=== PATIENT | female | born 1965 | race Caucasian/White ===

== ENCOUNTER 2024-04-10 07:49 | Emergency (ER) | payer BC, SELFPAY ==
[2024-04-10 07:59] VITALS: BP 218/113
--- NOTE | 2024-04-10 09:01 | ED.GENMED ---
History of Present Illness
General
Chief Complaint: Headache
Source: patient
Exam Limitations: none
Time Seen by Provider: 04/10/24 08:31
Travel History
Have you had any contact with someone who has COVID-19?: No
Do you have any symptoms of coronavirus? Fever > 100 degrees, chills, cough, shortness of breath, sore throat, loss of taste or smell, muscle aches, or headache?: No
History of Present Illness
History of Present Illness:
66-year-old female with history of hypertension presents complaining of worsening headache to the left side of her head. About 5 days ago, she developed an aura of which she saw floaters and developed pain to the left side of the head. Since then
she has had tenderness to the touch over the left alevism region and more recently numbness to the left side of her face. She denies loss of vision. She feels as though her vision is off slightly. She denies double vision. No rash. No fever. No
known tick bites. She has a history of shingles and this feels somewhat similar but she has since had her shingles vaccine. No other complaints at this time
Past History
Past History
ED Past Medical History: HTN and Hypercholesterolemia
ED Past Surgical History: None
Social History
Tobacco: Non-smoker
Alcohol: None
Phy Exam
Physical Exam
Physical Exam:
General: Well appearing female shielding her eyes from the light no acute respiratory distress
HEENT: Normocephalic pupils equal round reactive to light TMs normal extract motions are intact no proptosis
Heart: Regular rate and rhythm no murmurs lungs: Clear no wheeze
Skin: No rash or lesion
Neurologic: Alert and oriented x 3 mildly positive Tinel's over the temporal artery on the left
Musculoskeletal exam: Cervical spine nontender
Extremities: No cyanosis
Course
Orders/Labs/Results
Orders:
Orders
04/10/24 09:00
CT Head W/o Iv Contrast Urgent
Comment:
Reason For Exam: headache
04/10/24 09:38
CRP [C-Reactive Protein] Urgent
Complete Blood Count/With Diff Urgent
Comprehensive Metabolic Panel Urgent
Sed Rate [Erythrocyte Sed Rate] Urgent
Abnormal Lab Results
04/10/24
09:38
Glucose 116 H mg/dl
(70-99)
Calcium 10.9 H mg/dl
(8.4-10.2)
04/10/24 09:38
04/10/24 09:38
Vital Signs
Initial and Last Documented VS:
Initial Vital Signs
Temp Pulse Resp BP Pulse Ox
98.5 F 103 18 218/113 98
04/10/24 07:59 04/10/24 07:59 04/10/24 07:59 04/10/24 07:59 04/10/24 07:59
Last Documented Vital Signs
Temp Pulse Resp BP Pulse Ox
98.5 F 96 20 176/87 98
04/10/24 07:59 04/10/24 10:42 04/10/24 10:42 04/10/24 10:42 04/10/24 10:42
MDM/Problems Addressed
Differential Diagnosis Includes:
Left-sided headache. Consider atypical migraine versus temporal arteritis versus early onset shingles. Patient is hypertensive at triage. Will consider CT of head. Patient will take her blood pressure medicine in the room. Labs pending
including sed rate and CRP. Patient declined any symptomatic treatment until tests are performed.
*Critical Care Note
Total Time (30-74mins, 75-104mins- exclusive of procedures): Not Applicable
Update Note
Update Note:
CT normal. Labs reviewed with normal inflammatory markers. Temporal arteritis unlikely. No intracranial hemorrhage noted on CT. Suspect possible atypical migraine versus early shingles without rash. Offered treatment here however she declined.
She will call home and continue to manage symptoms at home advise follow-up with family doctor
ED Attending Note
-
Portions of this chart may have been created with voice recognition software.� Occasional wrong word or��sound alike� substitutions may have occurred due to the inherent limitations of voice recognition software.
Discharge Plan
Departure
Patient Disposition: Home (Routine Discharge)
Date of Disposition: 04/10/24
Time of Disposition: 12:23
Patient with high blood pressure during this ER visit?: No
Discharge Problem:
Headache
Instructions: Migraines (DC)
Prescriptions:
No Action
fenofibrate nanocrystallized 48 MG tablet
48 mg PO DAILY
Referrals:
Chevy Garsia MD [Family Provider] -
Activity Restrictions/Additional Instructions:
Please continue treatment at home for headache. Please return here for worsening symptoms. Continue to watch for a rash in the left side of your face. Follow-up with family doctor otherwise
Interventions
Interventions:
*Risk Screen - Suicide Last Done: 04/10/24 07:59
*General Assessment Last Done: 04/10/24 10:36
*Neglect/Abuse Screening Last Done: 04/10/24 07:59
*ED COVID-19 Vaccine History Last Done: 04/10/24 07:59
ED- Neurological Assessment Last Done: 04/10/24 10:39
Discharge Date and Time
Print Language: SLOVAK
[2024-04-10 09:59] LABS: ALT (SGPT) 28 U/L (0-35); AST (SGOT) 24 U/L (14-36); Albumin 4.6 g/dl (3.5-5.0); Alkaline Phosphatase 108 U/L (38-126); Blood Urea Nitrogen 16 mg/dl (7-17); Calcium 10.9 mg/dl (8.4-10.2); Carbon Dioxide 28 mmol/L (22-30); Chloride 105 mmol/L (98-107); Glucose 116 mg/dl (70-99); Sodium 141 mmol/L (135-145); Total Bilirubin 0.6 mg/dl (0.2-1.3); Total Protein 7.2 g/dl (6.3-8.2); eGFR > 60.00
[2024-04-10 10:00] LABS: % Eosinophils 0.8 % (0-6); % Immature Granulocytes 0.5 % (0-0.5); % Lymphocytes 28.1 % (20.5-51.1); % Monocytes 4.9 % (1.7-9.3); % Neutrophils 64.7 % (42.2-75.2); Absolute Basophils 0.1 10^3/uL (0-0.2); Absolute Eosinophils 0.1 10^3/uL (0-0.7); Absolute Lymphocytes 1.7 10^3/uL (1.2-3.4); Absolute Monocytes 0.3 10^3/uL (0.1-0.6); C-Reactive Protein < 5.00 mg/L (0.0-10.00); Hematocrit 43.5 % (37.0-47.0); Hemoglobin 14.9 g/dL (12.0-16.0); Mean Corp Hgb Conc. 34.3 g/dL (33.0-37.0); Mean Corpuscular Hgb 28.6 pg (27.0-31.0); Mean Corpuscular Volume 83.5 fL (81.0-99.0); Mean Platelet Volume 10.4 fL (7.4-10.4); Nucleated Red Blood Cells % 0 %; Platelet Count 235 10^3/uL (130-400); Red Blood Cell Count 5.21 10^6/uL (4.20-5.40); Red Cell Dist. Width 12.8 % (11.5-14.5); White Blood Cell Count 6.1 10^3/uL (4.8-10.8)
[2024-04-10 10:36] VITALS: BMI 40.2
[2024-04-10 10:42] VITALS: BP 176/87
[2024-04-10 11:00] VITALS: BP 176/94
[2024-04-10 11:27] LABS: Erythrocyte Sed Rate 13 mm/hour (0-20)
[2024-04-10 12:00] VITALS: BP 166/84
== END 2024-04-10 12:30 | disposition home or self-care (01) ==
LOC: EMR 07:49
PROVIDERS: Physician Assistant; EMERGENCY PHYSICIAN Emergency Medicine; FAMILY PHYSICIAN Internal Medicine
DX: R51.9 Headache, unspecified (principal); I10 Essential (primary) hypertension
CPT/HCPCS: 99284; 70450; 80053; 85025; 85652; 86140

== ENCOUNTER → 2024-09-22 12:19 | Outpatient (REF) | payer BC, SELFPAY | LOC: DHSLP 12:19 | PROVIDERS: ATTENDING PHYSICIAN Internal Medicine; FAMILY PHYSICIAN Internal Medicine | DX: G47.33 Obstructive sleep apnea (adult) (pediatric) (principal) | CPT/HCPCS: 95800 ==

== ENCOUNTER → 2024-12-13 13:29 | Outpatient (REF) | payer BC, SELFPAY | LOC: HWWDC 13:29 | PROVIDERS: ATTENDING PHYSICIAN Obstetrics & Gynecology Gynecology; FAMILY PHYSICIAN Internal Medicine | DX: Z12.39 Encounter for other screening for malignant neoplasm of breast (principal) | CPT/HCPCS: 77063; 77067 ==

== ENCOUNTER 2025-01-27 06:18 | Day surgery (SDC) | payer BC, SELFPAY | END 2025-01-27 12:48 | disposition home or self-care (01) | LOC: GI 06:18 | PROVIDERS: ATTENDING PHYSICIAN Internal Medicine Gastroenterology | DX: Z12.11 Encounter for screening for malignant neoplasm of colon (principal); K64.8 Other hemorrhoids; K57.30 Diverticulosis of large intestine without perforation or abscess without bleeding; D12.2 Benign neoplasm of ascending colon; K62.1 Rectal polyp | CPT/HCPCS: 45380; 88305 ==